=== PATIENT | female | born 1965 | race African-American/Black ===

== ENCOUNTER 2017-03-08 10:24 | Emergency (ER) | payer MEDICAID | END 2017-03-08 12:00 | disposition home or self-care (01) | LOC: D.ER 10:24 | DX: J06.9 Acute upper respiratory infection, unspecified (principal); J20.9 Acute bronchitis, unspecified ==

== ENCOUNTER 2017-03-25 11:26 | Emergency (ER) | payer MEDICAID | END 2017-03-25 14:50 | disposition home or self-care (01) | LOC: D.ER 11:26 | DX: S16.1XXA Strain of muscle, fascia and tendon at neck level, initial encounter (principal); V43.52XA Car driver injured in collision with other type car in traffic accident, initial encounter; Y93.89 Activity, other specified; Y92.410 Unspecified street and highway as the place of occurrence of the external cause; M54.6 Pain in thoracic spine; M54.5 Low back pain ==

== ENCOUNTER 2017-11-18 19:18 | Emergency (ER) | payer MEDICAID ==
[~2017-11-18] VITALS: Ht 157.5 cm; Wt 93.6 kg
[2017-11-18 19:40] VITALS: Ht 157.5 cm; Wt 93.6 kg
[2017-11-18] MEDS ORDERED: ABILIFY10 MG PO (19:42)
[2017-11-18] MEDS ORDERED: PEPCID AC20 MG PO (19:42)
[2017-11-18] MEDS ORDERED: LEXAPRO10 MG PO (19:43)
[2017-11-18] MEDS ORDERED: TRAZODONE HCL100 MG PO (19:43)
[2017-11-18] MEDS ORDERED: CYCLOBENZAPRINE10 MG PO (21:57)
[2017-11-18] MEDS ORDERED: EC-NAPROSYN500 MG PO (21:57)
[2017-11-18 22:09] VITALS: BP 112/74
== END 2017-11-18 22:10 | disposition home or self-care (01) ==
LOC: D.ER 19:18
DX: S16.1XXA Strain of muscle, fascia and tendon at neck level, initial encounter (principal); V49.9XXA Car occupant (driver) (passenger) injured in unspecified traffic accident, initial encounter; Y93.89 Activity, other specified; Y92.410 Unspecified street and highway as the place of occurrence of the external cause; S29.012A Strain of muscle and tendon of back wall of thorax, initial encounter; K21.9 Gastro-esophageal reflux disease without esophagitis